=== PATIENT | female | born 1980 | race Caucasian/White ===

== ENCOUNTER 2018-10-19 10:59 | Emergency (ER) | payer SELFPAY ==
[~2018-10-19] VITALS: Ht 157.5 cm; Wt 67.6 kg
[~2018-10-19 10:59] MED LIST: AMOXICILLIN 50500 MG PO; NORCO 325 MG-51 TAB PO
[2018-10-19 11:10] VITALS: BP 119/82; TEMP 98.4
[2018-10-19] MEDS ORDERED: FIORINAL 325 MG1 CAP PO (12:11)
[2018-10-19 12:38] VITALS: PULSE 85
== END 2018-10-19 12:39 | disposition home or self-care (01) ==
LOC: COL.ER 10:59
DX: G43.909 Migraine, unspecified, not intractable, without status migrainosus (principal); F17.210 Nicotine dependence, cigarettes, uncomplicated; G40.909 Epilepsy, unspecified, not intractable, without status epilepticus
CPT/HCPCS: J1885; J2550